=== PATIENT | male | born 1955 | race Caucasian/White ===

== ENCOUNTER 2020-05-24 15:54 | Observation (INO) | payer OTHER, SELFPAY ==
--- NOTE | 2020-05-24 16:00 | XR_ITS ---
WS: [id number] XR chest 1V portable [id number] REASON FOR EXAM: CVA FINDINGS: Cardiac enlargement. Normal thoracic aorta. Calcified granulomatous changes in both hemithoraces. No active pulmonary parenchymal or pleural disease. Mild/moderate degenerative changes in the thoracic spine and shoulders. XR/XR chest 1V portable [id number] IMPRESSION: Cardiac enlargement with no acute chest abnormality identified.
--- NOTE | 2020-05-24 16:00 | ECG_ITS ---
[facility] Test Date: 2020-05-24 Pat Name: Stan Smith Jr Department: Room: Gender: Male [employer]: : 1955 Requested By: Ashwin Salazar Order Number: [id number] Nikunj MD: Tennille Nance M.D. Measurements Intervals [place] Rate: 92 P: 65 [place]: 192 QRS: -72 QRSD: 106 T: 72 QT: 348 QTc: 431 Interpretive Statements SINUS RHYTHM LEFT ANTERIOR FASCICULAR BLOCK [QRS AXIS <= -45, QR IN I, RS IN II] POSSIBLE ANTERIOR MYOCARDIAL INFARCTION [30 ms Q WAVE IN V3/V4, OR R < 0.2 mV IN V4], OF INDETERMINATE AGE No previous ECG available for comparison Electronically Signed On 05-25-2020 19:38:05 MACHINIST GENERAL by Tennilel Nance M.D. [email or web address] [id number] f
--- NOTE | 2020-05-24 16:00 | CTR_ITS ---
PROCEDURE INFORMATION: Exam: CT Head Without Contrast Exam date and time: 05/24/2020 4:21 PM Age: 65 years old Clinical indication: Speech disturbance and weakness, extremity; Right; Slurred speech; Additional info: Symptoms of acute stroke TECHNIQUE: Imaging protocol: Computed tomography of the head without contrast. Radiation optimization: All CT scans at this facility use at least one of these dose optimization techniques: automated exposure control; mA and/or kV adjustment per patient size (includes targeted exams where dose is matched to clinical indication); or iterative reconstruction. COMPARISON: No relevant prior studies available. RADIATION DOSE METRICS: Total DLP (mGy-cm): 936.39 FINDINGS: Brain: Normal. No hemorrhage. Unremarkable white matter. No mass effect. Cerebral ventricles: No ventriculomegaly. Bones/joints: Unremarkable. No acute fracture. Paranasal sinuses: A cyst/polyp is present in the inferior left maxillary sinus. Mastoid air cells: Visualized mastoid air cells are well aerated. Orbital cavity: Bilateral prior cataract surgery. Vasculature: Atherosclerotic calcifications are present involving the carotid artery siphons and vertebral arteries bilaterally. Soft tissues: Unremarkable. CT/CT head wo con* [id number] IMPRESSION: No acute intracranial abnormality identified. Radiation Dose CTDIVOL = (mGy): DLP = 936.39 (mGy-cm)
[2020-05-24 16:14] VITALS: BP 185/77; PULSE 99; RESP 20; TEMP 36.7; O2SAT 97; BMI 52.7
--- NOTE | 2020-05-24 17:04 | ED_ITS ---
HPI - General Adult General: Chief complaint: General Medical Stated complaint: Slurred Speech, Numbness on Face Time Seen by Provider: 05/24/20 16:00 History of Present Illness: HPI narrative: 65-year-old male presents emergency room with complaints of slurring of his speech that began around noon today 4- 1/2 hours prior to arrival. Patient states he also noticed some weakness in his legs that was bilateral he has some peripheral edema and chronic neuropathy and weakness of his legs which is always present has not changed significantly. He thinks his speech has improved some but it is still slurred and is noticeable at the bedside. He denies any visual or swallowing difficulties no chest pain. Relieving factors: none Exacerbating factors: none Associated symptoms: Reports weakness; Deny chest pain, confusion, cough, diaphoresis, decreased appetite, dyspnea, fevers/chills, headache(s), malaise, nausea, rash, palpitations, seizures, short of breath, syncope or vomiting Treatments prior to arrival: none Review of Systems Const: Denies: malaise or diaphoresis Card: Denies: chest pain, palpitations or syncope Resp: Denies: dyspnea GI: Denies: nausea or vomiting Skin/Breast: Denies: rash Neuro: Denies: headache(s) or confusion PFSH ED PFSH: Medical History Congestive heart failure Diabetes mellitus Hyperlipidemia Hypertension Social History (Updated 05/24/20 @ 17:11 by Ashwin Dangelo DO) Smoking and tobacco status: never smoked Alcohol intake: never Physical Exam Const: COMMON NORMALS: no acute distress GENERAL APPEARANCE: cooperative and comfortable ORIENTATION/CONSCIOUSNESS: Yes awake, Yes oriented to person, Yes oriented to place and Yes oriented to time HENMT: COMMON NORMALS: normocephalic, atraumatic and hearing grossly normal bilaterally HEAD & SCALP: normocephalic and atraumatic Eye: COMMON NORMALS: Equal, round and reactive pupils present, EOMs intact bilaterally, conjunctivae normal and no scleral icterus CONJUNCTIVA: Yes conjunctivae normal PUPIL: Yes Equal, round and reactive pupils present Neck/C-Spine: COMMON NORMALS: full ROM, no lymphadenopathy, supple and no JVD Lymph: LYMPHATIC: no lymphadenopathy noted and no lymphedema noted Resp: COMMON NORMALS: normal respiratory effort, No retractions, No use of accessory muscles and clear to auscultation bilaterally AUSCULTATION: clear to auscultation bilaterally Cardio: COMMON NORMALS: no JVD, regular rate, regular rhythm and No murmurs present (Cardio) RATE: regular rate RHYTHM: regular rhythm GI: COMMON NORMALS: Soft to palpation and No hepatosplenomegaly present AUSCULTATION: Yes normoactive bowel sounds PALPATION: Yes Soft to palpation, No Tenderness to palpation present (GI), No Guarding due to palpation present (GI) and Yes No hepatosplenomegaly present Extremity: COMMON NORMALS: normal to inspection, capillary refill normal, no clubbing, cyanosis or edema, no calf tenderness and no pedal edema Neuro: SENSORIUM/ORIENTATION: Yes oriented to person, Yes oriented to place and Yes oriented to time Skin: COMMON NORMALS: no rashes or lesions noted GENERAL SKIN EXAM: no rashes or lesions noted Course Vital Signs: Vital signs: Vital Signs Temperature 98.1 F 05/24/20 16:14 Pulse Rate 99 05/24/20 16:14 Respiratory Rate 20 H 05/24/20 16:14 Blood Pressure 185/77 05/24/20 16:14 Pulse Oximetry 97 05/24/20 16:14 MDM - General Adult MDM Narrative: Medical decision making narrative: No acute bleed on the CT. His NIH score is not high enough to warrant embolectomy. He still has some difficulty with speech she has several risk factors we will go ahead and put him on observation for further evaluation as well as to evaluate if this will resolve or will progress. Currently he is outside the window for any kind of interventions at the time of his presentation he has waxing and waning symptoms and his NIH score is quite low. He had mentioned to the nurse he had numbness in his face when I test him for numbness there is equal sensation bilaterally. See his NIH score. Lab Data: Labs: Lab Results 05/24/20 05/24/20 05/24/20 Range/Units 16:52 16:52 16:52 WBC 10.1 H (4.0-10.0) 10^3/ uL RBC 4.99 (4.1-5.3) 10^6/u L Hgb 14.5 (11.7-16.6) g/dL Hct 43.3 (42.0-52.0) % MCV 86.8 (80-94) fL MCH 29.1 (28.0-34.0) pg MCHC 33.5 (30.0-36.0) g/dL RDW 13.2 (12.1-15.1) % Plt Count 269 (130-400) 10^3/c mm MPV 11.8 H (7.4-10.4) fL Neut % (Auto) 59.5 % Lymph % (Auto) 29.3 % [place] % (Auto) 6.6 % Eos % (Auto) 3.2 % Baso % (Auto) 0.8 % Neut # (Auto) 6.01 (1.8-7.7) 10^3/u L Lymph # (Auto) 3.0 (0.8-4.8) 10^3/u L [place] # (Auto) 0.7 (0.2-0.9) 10^3/u L Eos # (Auto) 0.3 (0.0-0.8) 10^3/u L Baso # (Auto) 0.1 (0.0-0.1) 10^3/u L Nucleated RBC % (a uto) 0 % Nucleated RBCs # 0.0 /100WBC PT 12.70 (12.1-14.9) SECO NDS INR 0.92 (0.8-1.2) APTT 25.2 (23.9-36.7) SECO NDS Sodium 134 L (136-145) mmol/L Potassium 4.1 (3.5-5.1) mmol/L Chloride 98 (98-107) mmol/L Carbon Dioxide 22 (22-29) mmol/L Anion Gap 18.1 (5-19) BUN 22 (8-23) mg/dL Creatinine 0.6 L (0.7-1.2) mg/dL GFR Calculation 134.8 H (90-130) mL/min Glucose 217 H (65-115) mg/dL Calculated Osmolal ity 288 (285-295) mOsm/k g Calcium 10.1 (8.5-10.5) mg/dL Total Bilirubin 0.2 (0.15-1.2) mg/dL AST 12 (0-40) U/L ALT 17 (0-41) U/L Alkaline Phosphata se 67 (40-130) IU/L Total Protein 6.9 (6.6-8.7) g/dL Albumin 4.1 (3.5-5.2) g/dL Globulin 2.8 (1.3-4.6) g/dL Discharge Plan Discharge Patient Disposition: Placed in Observation Clinical Impression: Acute CVA (cerebrovascular accident), Hypertension, Diabetes mellitus, Hyperlipidemia, Congestive heart failure Coding Level of Care Code ED Drop 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
[2020-05-24 17:06] LABS: Basophils # 0.1 10^3/uL (0.0-0.1); Basophils % 0.8 %; Eosinophils # 0.3 10^3/uL (0.0-0.8); Eosinophils % 3.2 %; Hematocrit 43.3 % (42.0-52.0); Hemoglobin 14.5 g/dL (11.7-16.6); Lymphocytes % 29.3 %; Mean Corpuscular HGB Conc 33.5 g/dL (30.0-36.0); Mean Corpuscular Hemoglobin 29.1 pg (28.0-34.0); Mean Corpuscular Volume 86.8 fL (80-94); Mean Platelet Volume 11.8 fL (7.4-10.4); Monocytes # 0.7 10^3/uL (0.2-0.9); Monocytes % 6.6 %; Neutrophils # 6.01 10^3/uL (1.8-7.7); Neutrophils % 59.5 %; Nucleated Red Blood Cells % 0 %; Platelet Count 269 10^3/cmm (130-400); Red Blood Count 4.99 10^6/uL (4.1-5.3); Red Cell Distribution Width 13.2 % (12.1-15.1); White Blood Count 10.1 10^3/uL (4.0-10.0)
[2020-05-24 17:16] LABS: INR 0.92 (0.8-1.2)
[2020-05-24 17:17] LABS: Partial Thromboplastin Time 25.2 SECONDS (23.9-36.7)
[2020-05-24 17:21] LABS: Alanine Aminotransferase 17 U/L (0-41); Albumin Level 4.1 g/dL (3.5-5.2); Alkaline Phosphatase 67 IU/L (40-130); Anion Gap 18.1 (5-19); Aspartate Amino Transferase 12 U/L (0-40); Blood Urea Nitrogen 22 mg/dL (8-23); Calcium 10.1 mg/dL (8.5-10.5); Carbon Dioxide 22 mmol/L (22-29); Chloride 98 mmol/L (98-107); Creatinine Clr Calc Pharmacy 150.4908; Globulin 2.8 g/dL (1.3-4.6); Glomerular Filtration Rate 134.8 mL/min (90-130); Glucose 217 mg/dL (65-115); Osmolality Calculated 288 mOsm/kg (285-295); Potassium 4.1 mmol/L (3.5-5.1); Sodium 134 mmol/L (136-145); Total Bilirubin 0.2 mg/dL (0.15-1.2); Total Protein 6.9 g/dL (6.6-8.7)
--- NOTE | 2020-05-24 19:17 | PM.HP ---
Providers/Chief Complaint Primary Care Provider: Divya Nye MD Chief Complaint: Slurred Speech, Numbness on Face History of Present Illness Stan Smith Jr is a 65 year old male who carries history of sleep apnea, type 2 diabetes, hypertension, morbid obesity presented today with chief complaint of slurred speech. Patient is stating that he noticed heaviness of his legs when he went to the bathroom around noon, at that time his son try to help him out and noticed that his speech was slurred, he did not come to the hospital until 3 PM. He did not notice any chest pain, palpitations, fever, nausea, vomiting, shortness of breath, diplopia, blurry vision. No previous history of [place], stroke. He is stating that he is also suffering from sciatica and foot drop and is not able to do any activity at ankle joints bilaterally. Diagnosis in the ER revealed hypertension 185/77, afebrile, normal CBC and BMP, CT head unremarkable, I have requested CTA head and neck, NIH score at the time of ER evaluation 2, is at the bedside. NIH score 4 slurred speech, right sided facial droop, ataxia, Review of Systems Const: Reports: fatigue and malaise; Denies: fever(s) or chills Eyes: Denies: change in vision ENMT: Denies: throat pain Card: Reports: swelling of feet/ankles; Denies: chest pain Resp: Denies: dyspnea GI: Denies: abdominal pain : Denies: flank pain Musc: Denies: neck pain Skin/Breast: Reports: changes in skin color; Denies: rash Neuro: Reports: weakness in extremities and difficulty walking; Denies: headache(s) Psych: Denies: anxiety Endo: Denies: polyuria Marquez/Lymph: Denies: easy bruising All/Imm: Denies: urticaria Medications/Allergies Home Medications Medication Instructions Recorded Confirmed Last Taken Type allopurinol 300 mg PO DAILY@0800 05/24/20 05/24/20 05/24/20 History amlodipine 5 mg PO DAILY@0800 05/24/20 05/24/20 05/24/20 History aspirin [Aspir-81] 81 mg PO DAILY@0800 05/24/20 05/24/20 05/24/20 History cholecalciferol (vitamin D3) 1 tab PO DAILY@0800 05/24/20 05/24/20 05/24/20 History furosemide 40 mg PO BID@,05/24/20 05/24/20 05/24/20 History gabapentin 300 mg PO BID@,05/24/20 05/24/20 05/24/20 History glipizide See Rx Instructions .ROUTE .COMPLEX 05/24/20 05/24/20 05/24/20 History insulin aspart U-100 [Novolog See Rx Instructions .ROUTE .COMPLEX 05/24/20 05/24/20 05/24/20 History U-100 Insulin aspart] insulin glargine [Lantus U-100 See Rx Instructions .ROUTE .COMPLEX 05/24/20 05/24/20 05/23/20 History Insulin] lisinopril 20 mg PO DAILY@0800 05/24/20 05/24/20 05/24/20 History metformin 1,000 mg PO BID@,05/24/20 05/24/20 05/24/20 History pravastatin 20 mg PO DAILY@0800 05/24/20 05/24/20 05/24/20 History spironolactone 25 mg PO DAILY@0800 05/24/20 05/24/20 05/24/20 History Allergies Allergy/AdvReac Type Severity Reaction Status Date / Time Tetanus Vaccines and Toxoid Allergy ALGY-Anaphy Verified 05/24/20 16:19 laxis PFSH Acute PFSH: Medical History (Updated 05/24/20 @ 19:20 by Kait Casey MD) Congestive heart failure Diabetes mellitus Hyperlipidemia Hypertension Lymphedema Prostate cancer Status post radiotherapy Sleep apnea Surgical History (Updated 05/24/20 @ 19:20 by Kait Casey MD) H/O hemorrhoidectomy History of tonsillectomy Family History (Updated 05/24/20 @ 19:20 by Kait Casey MD) Father Family history of premature coronary artery disease [place] age 46 Social History (Updated 05/24/20 @ 19:20 by Kait Casey MD) Smoking and tobacco status: never smoked Alcohol intake: never Substance/Drug Use: never Household members: spouse Housing: House Vitals/I&O/Wt Last Vital Signs Temp 98.1 F 05/24/20 16:14 Pulse 99 05/24/20 16:14 Resp 20 H 05/24/20 16:14 BP 185/77 05/24/20 16:14 Pulse Ox 97 05/24/20 16:14 Weight last 48 hrs Weight 176.447 kg Physical Exam Narrative: EXAM NARRATIVE: middle-age male sitting at the bedside when I enter the room Saturating well on room air is at the bedside Patient has right-sided facial droop, as per the his slurring of speech has slightly improved No no gaze preference, NIH 4 EOMI, PERRLA No headache No cerebellar signs Lower extremity strength knee flexion 3/5 hip flexion and extension 2/5 which is attributing to sciatica, no movement at all at ankle joint, upper extremity director statistical programming strength adequate and symmetrical S1, S2 is hard to assess his volume status Lower extremity nonpitting edema he is wearing compression stockings Abdomen soft distended with obesity, nontender Bilateral breath sounds without adventitious rhonchi or crackles Data : 05/24/20 16:52 05/24/20 16:52 A&P Assessment and plan (1) Acute CVA (cerebrovascular accident): Symptoms started at noon and patient presented to the hospital around 3 PM, deemed not a suitable candidate for TPA because of low NIH score, at the time of my evaluation at 8 PM NIH score is 4 As per the dysarthria has slightly improved, visible facial asymmetry, patient is stating that his bilateral lower extremity ataxia is chronic due to lymphedema, foot drop and sciatica CT head unremarkable for acute hemorrhage I have requested CTA head and neck Lipid profile, allow permissive hypertension, optimal control of hyperglycemia Dysphagia screen in the morning Neurochecks overnight Start aspirin and Plavix dual antiplatelet therapy for at least 21 days, high dose statins Physical therapy evaluation Status: Acute Additional A&P Information Obstructive sleep apnea: Continue auto CPAP overnight Type 2 diabetes: Would use low-dose sliding scale because we need dysphagia screen before starting him on diet Hypertension: Systolic blood pressure 180s allow permissive hypertension, hold amlodipine, hold spironolactone decrease lisinopril dose to 10 mg Full code N.p.o. DVT prophylaxis Lovenox Attestations Medical Necessity Statement*: I am anticipating patient will be discharged in less than 48 hours currently need work-up for acute stroke, NIH score 4 need CTA head and neck, will need speech evaluation and physical therapy in the morning Time Spent in Patient Care: (>than 50% of time spent in counselling and/or direct pt care on unit). 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
--- NOTE | 2020-05-24 19:21 | CTR_ITS ---
PROCEDURE INFORMATION: Exam: CT Angiography Head With Contrast Exam date and time: 05/24/2020 7:25 PM Age: 65 years old Clinical indication: Speech disturbance and weakness; Additional info: TIA TECHNIQUE: Imaging protocol: Computed tomography angiography of the head with intravenous contrast. 3D rendering (Not supervised by radiologist): MIP and/or 3D reconstructed images were created by the technologist. Radiation optimization: All CT scans at this facility use at least one of these dose optimization techniques: automated exposure control; mA and/or kV adjustment per patient size (includes targeted exams where dose is matched to clinical indication); or iterative reconstruction. Contrast material: OMNI 350; Contrast volume: 95 ml; Contrast route: INTRAVENOUS (IV); COMPARISON: CT head wo con* [id number] 05/24/2020 4:[address] cervical spine from 04/18/2017. RADIATION DOSE METRICS: Total DLP (mGy-cm): 3498.15 FINDINGS: ANTERIOR CIRCULATION: Right internal carotid artery: Insignificant calcified plaque in the very distal right internal carotid artery. Right middle cerebral artery: Unremarkable. No occlusion or significant stenosis. No aneurysm. Right anterior cerebral artery: The right A1 segment is absent but the left A1 segment is widely patent. There is crossover perfusion via the anterior communicating artery. Left internal carotid artery: Insignificant calcified plaque in the very distal left internal carotid artery. Left middle cerebral artery: Unremarkable. No occlusion or significant stenosis. No aneurysm. Left anterior cerebral artery: Unremarkable. No occlusion or significant stenosis. No aneurysm. POSTERIOR CIRCULATION: Right vertebral artery: Unremarkable. No occlusion or significant stenosis. No aneurysm. Left vertebral artery: Unremarkable. No occlusion or significant stenosis. No aneurysm. Basilar artery: There is a focal moderate stenosis in the proximal basilar artery estimated at 50-60% Right posterior cerebral artery: Unremarkable. No occlusion or significant stenosis. No aneurysm. Left posterior cerebral artery: Unremarkable. No occlusion or significant stenosis. No aneurysm. Left posterior communicating artery: Neither posterior communicating artery is seen which is usually incidental. Veins: The major intracranial venous sinuses enhance normally. Brain: Small right frontal vertex extra-axial soft tissue mass measures 9 x 8 x 8 mm and is most likely meningioma. No significant mass effect. Cerebral ventricles: No ventriculomegaly. Bones/joints: Unremarkable. No acute fracture. Soft tissues: Unremarkable. IMPRESSION: 1. 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 2. Small right frontal extra-axial mass is most likely a meningioma. No significant mass effect PROCEDURE INFORMATION: Exam: CT Angiography Neck With Contrast Exam date and time: 05/24/2020 7:25 PM Age: 65 years old Clinical indication: Speech disturbance and weakness; Additional info: TIA TECHNIQUE: Imaging protocol: Computed tomography angiography of the neck with intravenous contrast. 3D rendering (Not supervised by radiologist): MIP and/or 3D reconstructed images were created by the technologist. Radiation optimization: All CT scans at this facility use at least one of these dose optimization techniques: automated exposure control; mA and/or kV adjustment per patient size (includes targeted exams where dose is matched to clinical indication); or iterative reconstruction. Contrast material: OMNI 350; Contrast volume: 95 ml; Contrast route: INTRAVENOUS (IV); COMPARISON: CT head wo con* [id number] 05/24/2020 4:26 PM RADIATION DOSE METRICS: Total DLP (mGy-cm): 3498.15 FINDINGS: Right common carotid artery: No stenosis. No dissection or occlusion. Right internal carotid artery: Portions of the proximal right internal carotid artery are not well seen due to swallowing artifact. The vessel is otherwise patent. Right external carotid artery: No occlusion or stenosis of the origin. Right vertebral artery: The vertebral arteries are symmetric in size and are widely patent. Left common carotid artery: No stenosis. No dissection or occlusion. Left internal carotid artery: Calcified plaque in the proximal left internal carotid artery produces mild, less than 30% stenosis based on an NASCET minimum diameter criteria. Portions of this vessel are suboptimally evaluated due to swelling artifact. Left external carotid artery: No occlusion or stenosis of the origin. Left vertebral artery: No stenosis. No dissection or occlusion. Other vasculature: Calcified plaques are noted in the left anterior descending coronary artery. Thyroid: A predominantly solid 3.7 cm left thyroid nodule is unchanged since 2017. Bones/joints: The mild cervical degenerative changes in the upper cervical spine. No significant stenosis. Soft tissues: Normal. No significant soft tissue swelling. Lungs: The visualized lung apices are clear. CT/CT angio headneck* [id number] IMPRESSION: 1. No significant carotid or vertebral artery stenosis. 2. Chronic solid left thyroid nodule is stable since at least 2016 COMMENTS: Consistent with the [employer]'s Incidental Findings Committee white paper (J Am Shannon Radiol 2015): In patients aged 35 years and older with an incidental thyroid nodule equal to or greater than 1.[address], MRI or extrathyroidal US, further evaluation with dedicated thyroid US is recommended for patients with normal life expectancy and without comorbidities. For smaller nodules without suspicious features, no further evaluation or follow up is recommended. REFERENCES: NASCET CRITERIA. The degree of internal carotid artery stenosis is based on NASCET criteria. Normal is no stenosis. Mild is less than 50% stenosis. Moderate is 50-69% stenosis. Severe is 70% to 99% stenosis. Total occlusion is no detectable patent lumen. Radiation Dose CTDIVOL = (mGy): DLP = 3498.15~3498.15 (mGy-cm)
[2020-05-24 19:30] LABS: Add Urine Microscopic? YES; Bilirubin Urine Neg (Negative); Blood Urine Neg (Negative); Glucose Urine UA Norm (Normal); Ketones Urine Negative (Negative); Leukocyte Esterase Urine Negative (Negative); Nitrate Urine Positive (Negative); Protein Urine 3+ (Negative); Specific Gravity, Urine 1.015 (1.005-1.030); Urine Appearance Hazy (CLEAR); Urine Color Straw (Yellow); Urobilinogen Urine Norm (Negative); pH Urine 5 (5-7)
[2020-05-24 19:31] LABS: Add Urine Culture? Yes; Amphetamines Screen Urine Negative (Negative); Bacteria Urine 3+ /hpf; Barbiturates Screen Urine Negative (Negative); Benzodiazepines Screen Urine Negative (Negative); Cocaine Screen Urine Negative (Negative); Opiate Screen Urine Negative (Negative); PCP Screen Urine Negative (Negative); THC Screen Urine Negative (Negative); WBC Urine 15-25 /hpf (0-5)
[2020-05-24] MEDS: iohexol 350 mg/mL 100 mL Btl IV (19:48)
[2020-05-24 20:02] VITALS: BP 176/91; PULSE 96; RESP 18; O2SAT 97
[2020-05-24 20:11] VITALS: BP 178/97; PULSE 92; RESP 16; O2SAT 97
[2020-05-24 20:15] VITALS: BP 146/74; PULSE 80; RESP 20; TEMP 36.8; O2SAT 93
[2020-05-24 21:05] LABS: Glucose Point of Care 171 mg/dL (70-110)
[2020-05-24 21:11] LABS: Chol HDL Ratio 5.84 mg/dL (1.0-5.00); Cholesterol 187 mg/dL (0-200); HDL Cholesterol 32 mg/dL (60-100); LDL Cholesterol Calculated 79 mg/dL (50-129); LDL HDL Ratio 2.47 RATIO (0.00-3.22); Thyroid Stimulating Hormone 2.63 uIU/mL (0.27-4.20); Triglycerides 382 mg/dL (0-150)
[2020-05-24] MEDS: enoxaparin 40 mg/0.4 mL Syringe SUBCUT (21:43)
[2020-05-24] MEDS: atorvastatin 40 mg Tablet 80 MG PO (21:43)
[2020-05-24] MEDS: FUROsemide 40 mg Tablet PO (21:43)
[2020-05-24 22:00] VITALS: PULSE 95
[2020-05-24 22:19] LABS: Estmated Average Glucose 200; Hemoglobin A1C 8.6 % (4.0-6.0)
[2020-05-24 23:45] VITALS: BP 138/77; PULSE 96; RESP 18; TEMP 36.4; O2SAT 96
[2020-05-25] VITALS (8 sets, daily range): BP systolic 130–158; BP diastolic 51–87; PULSE 65–104; RESP 16–20; TEMP 36.4–36.9; O2SAT 93–95
[2020-05-25 05:01] LABS: Basophils # 0.1 10^3/uL (0.0-0.1); Basophils % 1.1 %; Eosinophils # 0.3 10^3/uL (0.0-0.8); Eosinophils % 3.4 %; Hemoglobin 13.6 g/dL (11.7-16.6); Lymphocytes # 2.5 10^3/uL (0.8-4.8); Lymphocytes % 28.6 %; Mean Corpuscular HGB Conc 33.2 g/dL (30.0-36.0); Mean Corpuscular Hemoglobin 29.1 pg (28.0-34.0); Mean Corpuscular Volume 87.8 fL (80-94); Mean Platelet Volume 12.4 fL (7.4-10.4); Monocytes # 0.8 10^3/uL (0.2-0.9); Monocytes % 8.9 %; Neutrophils % 57.5 %; Nucleated Red Blood Cells % 0 %; Platelet Count 229 10^3/cmm (130-400); Red Blood Count 4.67 10^6/uL (4.1-5.3); Red Cell Distribution Width 13.3 % (12.1-15.1); White Blood Count 8.7 10^3/uL (4.0-10.0)
[2020-05-25 05:22] LABS: Alanine Aminotransferase 14 U/L (0-41); Albumin Level 3.8 g/dL (3.5-5.2); Alkaline Phosphatase 59 IU/L (40-130); Anion Gap 15.7 (5-19); Aspartate Amino Transferase 14 U/L (0-40); Blood Urea Nitrogen 20 mg/dL (8-23); Calcium 9.9 mg/dL (8.5-10.5); Carbon Dioxide 25 mmol/L (22-29); Chloride 99 mmol/L (98-107); Globulin 2.6 g/dL (1.3-4.6); Glomerular Filtration Rate 134.8 mL/min (90-130); Glucose 208 mg/dL (65-115); Osmolality Calculated 291 mOsm/kg (285-295); Potassium 3.7 mmol/L (3.5-5.1); Sodium 136 mmol/L (136-145); Total Bilirubin 0.3 mg/dL (0.15-1.2); Total Protein 6.4 g/dL (6.6-8.7)
[2020-05-25 05:27] LABS: Creatinine Clr Calc Pharmacy 150.4908
[2020-05-25 06:31] LABS: Glucose Point of Care 247 mg/dL (70-110)
[2020-05-25] MEDS: FUROsemide 40 mg Tablet PO (08:42)
[2020-05-25] MEDS: lisinopril 10 mg Tablet PO (08:42)
[2020-05-25] MEDS: aspirin 81 mg EC Tablet PO (08:42)
[2020-05-25] MEDS: atorvastatin 40 mg Tablet 20 MG PO (08:42)
[2020-05-25] MEDS: amlodipine 5 mg Tablet PO (08:43)
[2020-05-25] MEDS: clopidogrel 75 mg Tablet PO (08:43)
--- NOTE | 2020-05-25 10:16 | USCV_ITS ---
Stan Smith Jr Age: 65 Gender: M : 1955 Exam Date: 05/25/2020 13:22 Ordering Phys: Timothy Bales MD Technologist: Italo Diaz Exam Location: [facility] [place] Indication: CVA BP: 145 / 67 HR: 85 Rhythm: Sinus Technical Quality: Technically difficult study MEASUREMENTS (Male / Female) Normal Values 2D ECHO LV Diastolic Diameter PLAX 4.7 cm 4.2 - 5.9 / 3.9 - 5.3 cm LV Systolic Diameter PLAX 3.1 cm IVS Diastolic Thickness 1.6 cm 0.6 - 1.0 / 0.6 - 0.9 cm IVS Systolic Thickness 1.6 cm LVPW Diastolic Thickness 1.3 cm 0.6 - 1.0 / 0.6 - 0.9 cm LVPW Systolic Thickness 1.5 cm LVOT Diameter 2.1 cm LV Ejection Fraction 2D Teich 63.6 % LA Diameter 4.2 cm M-MODE LV Diastolic Diameter MM 5.5 cm 4.2 - 5.9 / 3.9 - 5.3 cm LV Systolic Diameter MM 3.8 cm LV Ejection Fraction MM Teich 58.0 % IVS Diastolic Thickness MM 1.1 cm 0.6 - 1.0 / 0.6 - 0.9 cm IVS Systolic Thickness MM 1.8 cm LVPW Diastolic Thickness MM 1.2 cm 0.6 - 1.0 / 0.6 - 0.9 cm LVPW Systolic Thickness MM 2.0 cm RV Diastolic Diameter MM 1.8 cm Aortic Annulus Diameter 3.0 cm LA Ao Ratio MM 1.3 MV E Point Septal Separation 1.1 cm DOPPLER AV Peak Velocity 95.0 cm/s LVOT Peak Velocity 100.0 cm/s AV Area Cont Eq vti 3.3 cm squared AV Area Cont Eq pk 3.5 cm squared MV Area PHT 5.0 cm squared Mitral E to A Ratio 0.8 MV E' Velocity 70.0 cm/s TR Peak Velocity 140.0 cm/s TR Peak Gradient 7.8 mmHg TV Peak E Velocity 77.0 cm/s Right Atrial Pressure 3.0 mmHg Pulmonary Artery Systolic Pressu 10.8 mmHg FINDINGS Left Ventricle Possibly normal LV size ejection fraction of 60%. Segmental wall motion analysis difficult. Extremely poor ultrasonic window. Right Ventricle Could not be visualized well Right Atrium Could not be visualized well Left Atrium Mildly increased left atrial size. Mitral Valve Thickened mitral valve. Aortic Valve Morphology could not be delineated well Tricuspid Valve Valve is not visualized well Pulmonic Valve Pulmonic valve not well visualized. Pericardium No pericardial effusion. Aorta Normal aortic annulus size. CONCLUSIONS Possibly normal LV size ejection fraction of 60%. Segmental wall motion analysis difficult. Thickened mitral valve. Other valves could not be visualized well Mildly increased left atrial size. There is no pericardial effusion. Extremely poor ultrasonic window. No previous study is available for comparison. Dr Dano Suazo MD FACC (Electronically Signed) Final Date: 25 May 2020 16:08 S
[2020-05-25] MEDS: cefTRIAXone 1,000 MG in sodium chloride 0.9% (plus) 50 ML 100 MG IV (11:01)
[2020-05-25 11:41] LABS: Glucose Point of Care 281 mg/dL (70-110)
--- NOTE | 2020-05-25 16:33 | PM.DCS ---
Discharge Providers Date of Admission: 05/24/20 19:18 Date of Discharge: May 25, 2020 Attending Provider at Admission: Kait Casey MD Attending Provider at Discharge: iTmothy Bales Primary Care Provider: Divya Nye MD Diagnoses at Discharge Discharge Diagnosis (1) Acute CVA (cerebrovascular accident): Status: Acute (2) UTI (urinary tract infection): Status: Acute (3) Diabetes mellitus: Status: Acute (4) Hyperlipidemia: Status: Acute (5) Hypertension: Status: Acute Reason for Visit Reason for Visit: Slurred Speech, Numbness on Face Hospital Course Hospital Course Pleasant 65-year-old gentleman with history of CHF, DM 2, HLD, HTN, chronic lymphedema, history of prostate cancer status post radiotherapy, sleep apnea using CPAP was admitted after presenting with slurred speech, with noted right-sided facial droop on presentation, dysarthria, ataxia. He was outside the window for TPA. CT head showed no acute abnormality. He was continued on aspirin, started on Plavix. Initiated on high intensity statin. His antihypertensives were held for permissive hypertension. A1c was checked and was 8.6. CTA head and neck was obtained which showed moderate chronic basilar artery stenosis at 50-60%. Also incidentally noted small right frontal extra-axial mass most likely meningioma of 9 x 8 x 8 mm. Also noted chronic solid left thyroid nodule stable since at least 2017 at 3.7 cm. He was monitored on telemetry without any finding of atrial fibrillation. Also underwent chest x-ray with cardiac enlargement with no acute chest abnormality. He is a never smoker. He states that he is religiously compliant with his CPAP at home for sleep apnea. He has been having difficulties with ambulation, and noted requiring significant assistance by physical therapy to try to get up from chair. He did better with speech therapy, and regular consistency diet was recommended. On presentation he was also noted to have 15-25 WBCs, positive nitrite in urine with 3+ bacteria, suspicion for UTI for which he was started on Rocephin while in the hospital. He had no meningeal signs, and no signs of infection elsewhere. His TSH was normal at 2.63. Urine drug screen unremarkable. Total cholesterol 187, triglycerides 382, LDL 79, HDL 32. He underwent additional assessment by echocardiography. MRI could not be obtained as he was above the weight limitation of the machine. His facial droop was persistent, however, slurred speech did improve little bit. Concern was expressed regarding safe return home given significant assistance required to get up from chair or from bed. However, he was firm that he was going to return home today and that his house was much better equipped including a chair lift and he has been used to dealing with chronic lower extremity weakness and mobility difficulties. He reports his heaviness in his legs, chronic sciatica, foot drop are not new, and without worsening. His condition, all incidental findings, as well as concerns regarding his mobility expressed by physical therapy discussed with him and his . Additional monitoring and work-up in the hospital recommended. We also discussed risks of CVA with basilar artery narrowing, concern for need for additional monitoring of blood pressure, risk of hypoperfusion, risk of possible posterior CVA, with possible risk of cerebellar edema, brainstem herniation, severe disability as well as including coma, respiratory arrest and as possible complications. However, he he states he understands the risks but still prefers to discharge home despite some of the testing results including echocardiogram being incomplete. He deos agree to initiation of high intensity statin, temporary addition of Plavix to aspirin, and with seeking outpatient follow-up. Discussed with him to at least avoid initiation of oral antihypertensives agents at the same time to avoid rapid decrease in blood pressure, hypoperfusion, and that may lead to progression of stroke and discussed gradual initiation of blood pressure medications (as below), again encouraging him to stay with us or return to continue care, and definitely seek emergent medical attention in case of any worsening or concerns. Discussed that long-term we want to achieve better blood pressure control, with target of less than 130/80, recommend with acute CVA and bilateral stenosis rapid decrease in blood pressure need to be avoided. Discussed frequent monitoring of blood pressure. He would also benefit from optimization of diabetes control. He is initiated on Plavix for now for 21 days in addition to aspirin. His statin dose is increased to high intensity atorvastatin. He is [facility] for additional assessment and recommendations to prevent recurrent CVA including in the setting of basilar artery stenosis, and follow-up on meningioma. He understands also that his urine culture is incomplete, and with history of UTI he may be at risk of resistant bacteria. In case culture shows resistant organisms antibiotic prescribed to him may not be effective. He understands also to follow-up with his primary provider regarding optimization of other risk factors for CVA. Assistance with weight loss options. As well as to follow-up on the thyroid nodule. Physical Exam Const: COMMON NORMALS: no acute distress and patient oriented x3 GENERAL APPEARANCE: comfortable NUTRITIONAL APPEARANCE: obese morbidly obese OTHER: Pleasant, conversant. HENMT: COMMON NORMALS: oropharynx normal Neck/C-Spine: COMMON NORMALS: no meningeal signs and no JVD Resp: COMMON NORMALS: normal respiratory effort and clear to auscultation bilaterally AUSCULTATION: clear to auscultation bilaterally Cardio: COMMON NORMALS: no JVD, regular rhythm, S1 normal heart sound present, S2 normal heart sound present and No murmurs present (Cardio) RHYTHM: regular rhythm HEART SOUNDS: S1 normal heart sound present and S2 normal heart sound present GI: COMMON NORMALS: Normal to inspection, nondistended, normoactive bowel sounds present, Soft to palpation and non-tender PALPATION: Yes Soft to palpation Extremity: COMMON NORMALS: no joint enlargement NARRATIVE EXTREMITY EXAM: Non-pitting edema. Compression stockings in place. Neuro: COMMON NORMALS: patient oriented x3 and moves all extremities MENINGEAL SIGNS: Yes no meningeal signs COORDINATION/BALANCE: No [id number] test normal (mild dysmetria in R arm on FNF) SPEECH: abnormal speech (mild dysarthria) SENSORY EXAM: Yes extremities (normal) and Normal double simultaneous stimulation for sensation MOTOR EXAM: Pronator motor function not present, Normal motor muscle tone present throughout (power symmetrical) and Other motor observations present (R side facial droop) COORDINATION: [id number] test abnormal (mild dysmetria in R arm on FNF) OTHER: Visual rivas full to confrontation Skin: COMMON NORMALS: no rashes or lesions noted GENERAL SKIN EXAM: no rashes or lesions noted Discharge Data Data Completed and Pending: Completed Studies During Hospitalization Category Date Time Status CT angio headneck * [id number] Stat Cat Scan 05/24/20 19:[address] head wo con* [id number] Stat Cat Scan 05/24/20 16:00 Completed XR chest 1V greg ble [id number] Stat Exams 05/24/20 16:00 Completed CV echo complete* [id number] Routine Ultrasound 05/25/20 10:16 Completed Pending at discharge Category Date Time Status Urine Culture Sta t Lab 05/24/20 19:10 Received Labs from last 24 hours 05/25/20 05/25/20 05/25/20 11:06 06:21 04:09 WBC RBC Hgb Hct MCV MCH MCHC RDW Plt Count MPV Neut % (Auto) Lymph % (Auto) [place] % (Auto) Eos % (Auto) Baso % (Auto) Neut # (Auto) Lymph # (Auto) [place] # (Auto) Eos # (Auto) Baso # (Auto) Nucleated RBC % (a uto) Nucleated RBCs # PT INR APTT Sodium 136 Potassium 3.7 Chloride 99 Carbon Dioxide 25 Anion Gap 15.7 BUN 20 Creatinine 0.6 L GFR Calculation 134.8 H Glucose 208 H POC Glucose 281 247 Estimat Average Gl ucose Hemoglobin A1c Calculated Osmolal ity 291 Calcium 9.9 Total Bilirubin 0.3 AST 14 ALT 14 Alkaline Phosphata se 59 Total Protein 6.4 L Albumin 3.8 Globulin 2.6 Triglycerides Cholesterol LDL Cholesterol, C alc HDL Cholesterol LDL/HDL Ratio Cholesterol/HDL Ra meaghan TSH Urine Color Urine Appearance Urine pH Ur Specific Gravit y Urine Protein Urine Glucose (UA) Urine Ketones Urine Blood Urine Nitrate Urine Bilirubin Urine Urobilinogen Ur Leukocyte Nakita ase Urine RBC Urine WBC Ur Squamous Epith Cells Amorphous Sediment Urine Bacteria Urine Opiates Scre en Ur Barbiturates Sc reen Ur Phencyclidine S crn Ur Amphetamines Sc reen U Benzodiazepines Scrn Urine Cocaine Scre en U Marijuana (THC) Screen 05/25/20 05/24/20 05/24/20 04:09 21:02 19:10 WBC 8.7 RBC 4.67 Hgb 13.6 Hct 41.0 L MCV 87.8 MCH 29.1 MCHC 33.2 RDW 13.3 Plt Count 229 MPV 12.4 H Neut % (Auto) 57.5 Lymph % (Auto) 28.6 [place] % (Auto) 8.9 Eos % (Auto) 3.4 Baso % (Auto) 1.1 Neut # (Auto) 5.00 Lymph # (Auto) 2.5 [place] # (Auto) 0.8 Eos # (Auto) 0.3 Baso # (Auto) 0.1 Nucleated RBC % (a uto) 0 Nucleated RBCs # 0.0 PT INR APTT Sodium Potassium Chloride Carbon Dioxide Anion Gap BUN Creatinine GFR Calculation Glucose POC Glucose 171 Estimat Average Gl ucose Hemoglobin A1c Calculated Osmolal ity Calcium Total Bilirubin AST ALT Alkaline Phosphata se Total Protein Albumin Globulin Triglycerides Cholesterol LDL Cholesterol, C alc HDL Cholesterol LDL/HDL Ratio Cholesterol/HDL Ra meaghan TSH Urine Color Urine Appearance Urine pH Ur Specific Gravit y Urine Protein Urine Glucose (UA) Urine Ketones Urine Blood Urine Nitrate Urine Bilirubin Urine Urobilinogen Ur Leukocyte Nakita ase Urine RBC Urine WBC Ur Squamous Epith Cells Amorphous Sediment Urine Bacteria Urine Opiates Scre en Negative Ur Barbiturates Sc reen Negative Ur Phencyclidine S crn Negative Ur Amphetamines Sc reen Negative U Benzodiazepines Scrn Negative Urine Cocaine Scre en Negative U Marijuana (THC) Screen Negative 05/24/20 05/24/20 05/24/20 19:10 16:52 16:52 WBC RBC Hgb Hct MCV MCH MCHC RDW Plt Count MPV Neut % (Auto) Lymph % (Auto) [place] % (Auto) Eos % (Auto) Baso % (Auto) Neut # (Auto) Lymph # (Auto) [place] # (Auto) Eos # (Auto) Baso # (Auto) Nucleated RBC % (a uto) Nucleated RBCs # PT INR APTT Sodium Potassium Chloride Carbon Dioxide Anion Gap BUN Creatinine GFR Calculation Glucose POC Glucose Estimat Average Gl ucose 200 Hemoglobin A1c 8.6 H Calculated Osmolal ity Calcium Total Bilirubin AST ALT Alkaline Phosphata se Total Protein Albumin Globulin Triglycerides 382 H Cholesterol 187 LDL Cholesterol, C alc 79 HDL Cholesterol 32 L LDL/HDL Ratio 2.47 Cholesterol/HDL Ra meaghan 5.84 H TSH 2.63 Urine Color Straw Urine Appearance Hazy A Urine pH 5 Ur Specific Gravit y 1.015 Urine Protein 3+ H Urine Glucose (UA) Norm Urine Ketones Negative Urine Blood Neg Urine Nitrate Positive H Urine Bilirubin Neg Urine Urobilinogen Norm Ur Leukocyte Nakita ase Negative Urine RBC None Urine WBC 15-25 H Ur Squamous Epith Cells None Amorphous Sediment Not Reportable Urine Bacteria 3+ H Urine Opiates Scre en Ur Barbiturates Sc reen Ur Phencyclidine S crn Ur Amphetamines Sc reen U Benzodiazepines Scrn Urine Cocaine Scre en U Marijuana (THC) Screen 05/24/20 05/24/20 05/24/20 16:52 16:52 16:52 WBC 10.1 H RBC 4.99 Hgb 14.5 Hct 43.3 MCV 86.8 MCH 29.1 MCHC 33.5 RDW 13.2 Plt Count 269 MPV 11.8 H Neut % (Auto) 59.5 Lymph % (Auto) 29.3 [place] % (Auto) 6.6 Eos % (Auto) 3.2 Baso % (Auto) 0.8 Neut # (Auto) 6.01 Lymph # (Auto) 3.0 [place] # (Auto) 0.7 Eos # (Auto) 0.3 Baso # (Auto) 0.1 Nucleated RBC % (a uto) 0 Nucleated RBCs # 0.0 PT 12.70 INR 0.92 APTT 25.2 Sodium 134 L Potassium 4.1 Chloride 98 Carbon Dioxide 22 Anion Gap 18.1 BUN 22 Creatinine 0.6 L GFR Calculation 134.8 H Glucose 217 H POC Glucose Estimat Average Gl ucose Hemoglobin A1c Calculated Osmolal ity 288 Calcium 10.1 Total Bilirubin 0.2 AST 12 ALT 17 Alkaline Phosphata se 67 Total Protein 6.9 Albumin 4.1 Globulin 2.8 Triglycerides Cholesterol LDL Cholesterol, C alc HDL Cholesterol LDL/HDL Ratio Cholesterol/HDL Ra meaghan TSH Urine Color Urine Appearance Urine pH Ur Specific Gravit y Urine Protein Urine Glucose (UA) Urine Ketones Urine Blood Urine Nitrate Urine Bilirubin Urine Urobilinogen Ur Leukocyte Nakita ase Urine RBC Urine WBC Ur Squamous Epith Cells Amorphous Sediment Urine Bacteria Urine Opiates Scre en Ur Barbiturates Sc reen Ur Phencyclidine S crn Ur Amphetamines Sc reen U Benzodiazepines Scrn Urine Cocaine Scre en U Marijuana (THC) Screen Vitals: Last Vital Signs Temp 98.4 F 05/25/20 15:43 Pulse 65 05/25/20 15:43 Resp 16 05/25/20 15:43 BP 150/51 05/25/20 15:43 Pulse Ox 95 05/25/20 15:43 Discharge Plan Discharge Patient Disposition: Left Against Medical Advice Condition: Stable Prescriptions: New atorvastatin 40 mg Tablet 80 mg PO BEDTIME Qty: 60 RF: 0 clopidogrel 75 mg Tablet 75 mg PO DAILY Qty: 20 RF: 0 cefdinir 300 mg capsule 300 mg PO BID 5 Days Qty: 10 RF: 0 Continued Lantus U-100 Insulin 100 unit/mL Solution See Rx Instructions .ROUTE .COMPLEX RF: 0 amlodipine 5 mg Tablet 5 mg PO DAILY@0800 RF: 0 Aspir-81 81 mg Tablet,Delayed Release (Dr/Ec) 81 mg PO DAILY@0800 RF: 0 Novolog U-100 Insulin aspart 100 unit/mL Solution See Rx Instructions .ROUTE .COMPLEX RF: 0 metformin 1,000 mg Tablet 1,000 mg PO BID@ RF: 0 gabapentin 300 mg Tablet Extended Release 24 Hr 300 mg PO BID@ RF: 0 cholecalciferol (vitamin D3) 1 tab PO DAILY@0800 RF: 0 glipizide See Rx Instructions .ROUTE .COMPLEX RF: 0 Held furosemide 40 mg Tablet 40 mg PO BID@ RF: 0 Hold Instructions: Resume on 05/27/20. lisinopril 20 mg Tablet 20 mg PO DAILY@0800 RF: 0 Hold Instructions: Resume on 05/26/20. spironolactone 25 mg Tablet 25 mg PO DAILY@0800 RF: 0 Hold Instructions: Resume on 05/27/20. allopurinol 300 mg Tablet 300 mg PO DAILY@0800 RF: 0 Hold Instructions: Resume on 05/28/20. Discontinued pravastatin 20 mg Tablet 20 mg PO DAILY@0800 RF: 0 Discharge Orders: Discharge Order (Routine); Ordered 05/25/20 Ordered By: Timothy Bales Referrals: Divya Nye MD [Primary Care Provider] - 4-7 days (DOCTOR WILL CALL WITH APPOINTMENT) Discharge Diet: As Directed, Cardiac and Diabetic Discharge Activity: As per PT/OT instructions Patient Instructions: Atorvastatin (By mouth), Clopidogrel (By mouth), Urinary Tract Infection in Men (GEN), Meningioma (GEN), Ischemic Stroke (DC), Self Care Measures After a Stroke (DC), Hypertension (GEN), Stroke Stoplight Activity Restrictions/Additional Instructions: We would like to watch you in the hospital an additional day, so please be cautious due to concern for worsening symptoms of stroke, stroke progression, disability or . Please return to the hospital at any time to continue treatment or definitely if you feel any worse. Please maintain strict fall precautions. Aspiration precautions. Follow recommendations of speech therapy, PT and OT to stay safe and avoid detrimental events from residual effects after your stroke. Please monitor blood pressure 3 times daily at least, record values to bring to your appointment. [facility] you want to manage your blood pressure to a target of less than 130/80, however, please avoid low blood pressure especially in the several days after your stroke. Resume your blood pressure medications slowly after discharge. Tomorrow restarting half dose of lisinopril, then full dose lisinopril (20mg), then add back Lasix and spironolactone day after, then day after finally resuming amlodipine if blood pressure stays above 120-130 systolic. If your blood pressure is very high despite taking your medications please call your doctor, or if higher than 180 top number persistently, please call 911. Similarly please seek medical attention/call 911 immediately if you experience any new numbness, weakness, slurred speech, or other symptoms that may suggest a stroke. Please note you are started on Plavix in addition to aspirin for 21 days to reduce the chance of additional stroke. Please discuss with your primary care doctor and neurologist regarding duration of this medication. Your cholesterol medication is also changed to a high intensity dose with atorvastatin. Discuss referral to neurology with your primary care doctor for additional assessment. Please discuss with your primary care doctor and neurologist regarding chronic 50-60% basilar artery stenosis (artery at the underside of your brain). Discuss with your doctor consideration to refer for MRI brain (unable to complete here due to weight restriction). Continue to work with your primary care doctor to optimize control of diabetes, with A1c 8.6, target A1c of 7-8. Please work with your primary care doctor with regards to weight loss. Continue CPAP for sleep apnea. Please have your primary care provider obtain echocardiogram results and discuss as this test has not been assessed at the time of your discharge and may hold important information. Please discuss with your primary care doctor and neurologist regarding incidentally found meningioma (small tumor) in your brain. Please discuss additional follow-up to exclude future growth. Please note you are also prescribed an antibiotic for treatment of urinary tract infection. If you experience any high fevers, any confusion, any difficulty urinating, or any severe diarrhea or other abnormal symptoms, please seek medical attention. Please beware that urinary culture is not complete and the antibiotic may need to change based on culture results. Please follow up with your primary care doctor regarding culture results. Discuss with your primary care doctor stable nodule seen in our thyroid. Discharge Attestations Time Spent in Discharge Care*: greater than 30 min Quality Metrics Clinical Quality Measures During this hospital stay, did patient experience: Stroke Contraindication to Antithrombotic: Antithrombotic prescribed Contraindication to Anticoagulation: Overlap treatment not indicated Contraindication to Statin: Statin prescribed Coding Level of Care Code [employer] Former [employer] for [employer] Diagnoses Acute CVA (cerebrovascular accident) I63.9 UTI (urinary tract infection) N39.0 Diabetes mellitus E11.9 Hyperlipidemia E78.5 Hypertension I10
[2020-05-25 17:40] LABS: Glucose Point of Care 264 mg/dL (70-110)
== END 2020-05-25 16:30 | disposition left against medical advice (07) ==
LOC: ER 18:09 → MEDSURG 19:34
PROVIDERS: Admitting Provider Internal Medicine; Emergency Provider Family Medicine; PCP Internal Medicine; Visit Provider Internal Medicine
DX: I63.9 Cerebral infarction, unspecified (principal); N39.0 Urinary tract infection, site not specified; E11.9 Type 2 diabetes mellitus without complications; I10 Essential (primary) hypertension; E66.01 Morbid (severe) obesity due to excess calories; Z68.43 Body mass index [BMI] 50.0-59.9, adult; Z79.4 Long term (current) use of insulin; E78.5 Hyperlipidemia, unspecified; C61 Malignant neoplasm of prostate; Z92.3 Personal history of irradiation; G47.33 Obstructive sleep apnea (adult) (pediatric)
CPT/HCPCS: 12345; 36415; 36416; 70450; 70496; 70498; 71045; 80053; 80061; 80306; 81001; 82962; 83036; 84443; 85025; 85610; 85730; 87077; 87086; 87186; 92523; 92610; 93005; 93306; 96372; 97161; 97530; 99282; 99285; G0378; J0696; J1650; J1815; Q9967

== ENCOUNTER 2021-06-28 13:09 | Outpatient (CLI) | payer OTHER, SELFPAY ==
--- NOTE | 2021-06-28 13:16 | US_ITS ---
WS: [id number] RENAL ULTRASOUND HISTORY: FOLLOW UP KIDNEY CYSTS COMPARISON: CT 08/25/2018, 08/26/2018 TECHNIQUE: 2-D and color Doppler imaging of the kidney submitted. Right kidney: 13.4 cm x 6.7 cm x 7.6 cm. Normal size RIGHT kidney. Exophytic cyst from the RIGHT kidney measures 3.4 x 3.4 x 3.6 cm. This appe ars to be from the mid kidney. There is an additional very poorly visualized mass extending posterior from the superior kidney measuring 2.8 x 2.0 x 2.2 cm. This is poorly visualized due to patient's remigio dy habitus. Left kidney: 14.5 cm x 8.5 cm x 8.4 cm. Normal size kidney. Kidney is very difficult to visualize due to body habitus. Aorta: Not visualized. Urinary Bladder: Normally distended. US/US renal BI* [id number] IMPRESSION: 1. Technically very difficult evaluation of the kidneys due to body habitus. 2. No hydronephrosis. 3. Simple cyst RIGHT kidney. 4. Additional mass from the RIGHT kidney may be a complex cyst or solid mass f rom the superior pole. Poorly visualized due to patient's body habitus. Conside r follow-up renal mass CT protocol.
== END 2021-06-28 13:10 | disposition home or self-care (01) ==
LOC: RAD 13:10
PROVIDERS: PCP Internal Medicine; Visit Provider Internal Medicine Nephrology
DX: Q61.02 Congenital multiple renal cysts (principal); N28.89 Other specified disorders of kidney and ureter
CPT/HCPCS: 76770

== ENCOUNTER → 2021-07-26 16:00 | Outpatient (BNVA) | payer OTHER, SELFPAY | PROVIDERS: PCP Internal Medicine; Visit Provider Surgery | DX: K92.1 Melena (principal); Z20.822 Contact with and (suspected) exposure to COVID-19 | CPT/HCPCS: 87635 ==

== ENCOUNTER 2021-11-16 06:00 | Outpatient (RCR) | payer OTHER, SELFPAY | END 2021-12-08 23:59 | disposition home or self-care (01) | LOC: SPT 06:00 | PROVIDERS: Referring Provider Internal Medicine; Visit Provider Internal Medicine | DX: R60.0 Localized edema (principal) | CPT/HCPCS: 29581; 97140; 97162 ==

== ENCOUNTER 2021-12-09 | Outpatient (RCR) | payer OTHER, SELFPAY | END 2022-01-08 23:59 | disposition home or self-care (01) | LOC: SPT | PROVIDERS: Referring Provider Internal Medicine; Visit Provider Internal Medicine | DX: R60.0 Localized edema (principal) | CPT/HCPCS: 29581; 97164 ==

== ENCOUNTER 2022-05-23 14:28 | Emergency (ER) | payer OTHER, SELFPAY ==
[2022-05-23] VITALS (8 sets, daily range): BP systolic 135–185; BP diastolic 65–99; PULSE 72–78; RESP 10–16; TEMP 36.8; O2SAT 95–98
[2022-05-23 16:06] LABS: Basophils # 0.1 10^3/uL (0.0-0.1); Basophils % 0.7 %; Eosinophils # 0.3 10^3/uL (0.0-0.8); Eosinophils % 3.3 %; Hematocrit 42.6 % (42.0-52.0); Hemoglobin 14.2 g/dL (11.7-16.6); Lymphocytes # 2.4 10^3/uL (0.8-4.8); Lymphocytes % 29.9 %; Mean Corpuscular HGB Conc 33.3 g/dL (30.0-36.0); Mean Corpuscular Hemoglobin 29.9 pg (28.0-34.0); Mean Corpuscular Volume 89.7 fl (80-94); Mean Platelet Volume 11.6 fL (7.4-10.4); Monocytes # 0.7 10^3/uL (0.2-0.9); Monocytes % 8.2 %; Neutrophils # 4.65 10^3/uL (1.8-7.7); Neutrophils % 57.7 %; Nucleated Red Blood Cells % 0 %; Platelet Count 251 10^3/cmm (130-400); Red Blood Count 4.75 10^6/uL (4.1-5.3); Red Cell Distribution Width 13.6 % (12.1-15.1); White Blood Count 8.1 10^3/uL (4.0-10.0)
[2022-05-23 16:40] LABS: Alanine Aminotransferase 18 U/L (0-41); Albumin Level 3.3 g/dL (3.5-5.2); Alkaline Phosphatase 105 U/L (40-130); Anion Gap 19.5 (5-19); Aspartate Amino Transferase 14 U/L (0-40); Blood Urea Nitrogen 15 mg/dL (8-23); Calcium 9.7 mg/dL (8.5-10.5); Carbon Dioxide 23 mmol/L (22-29); Chloride 102 mmol/L (98-107); Globulin 3.3 g/dL (1.3-4.6); Glomerular Filtration Rate 165.4 mL/min (90-130); Glucose 109 mg/dL (65-115); NT Pro B Type Natriuretic Pept 564 pg/mL (0-125); Osmolality Calculated 293 mOsm/kg (285-295); Potassium 3.5 mmol/L (3.5-5.1); Sodium 141 mmol/L (136-145); Total Bilirubin 0.4 mg/dL (0.15-1.2); Total Protein 6.6 g/dL (6.6-8.7)
--- NOTE | 2022-05-23 16:42 | W.ED.BACK ---
Documented by User: Ashwin Dangelo DO 05/24/22 14:52 HPI - Back Pain/Injury General: Chief Complaint: Back Pain/Injury Stated Complaint: weakness Time Seen by Provider: 05/23/22 16:42 Source: patient Mode of arrival: ambulatory History of Present Illness: 59-year-old male presents emergency room with sudden onset of weakness in both of his lower extremities he is not had any fecal incontinence or urinary retention. He has not previously had any back problems. He denies any trauma or falls. No fever sweats or chills. He has weakness in the legs but no pain radiating down leg. Patient has chronic stasis edema in his lower extremities requiring aggressive compression of his lower extremities he can still move his legs but has decreased sensation and strength. Today he was suddenly unable to ambulate or bear weight and was advised to come to the ER. Onset (ago): hour(s) Timing: constant Severity: moderate Similar Symptoms Previously: No Quality: tingling Radiation: left upper leg, right upper leg, left leg below the knee and right leg below the knee Exacerbating factors: walking Relieving factors: none Associated symptoms: Deny abdominal pain, arthralgias, chills, change in bowel habits, difficulty walking, dysuria, fatigue, fecal incontinence, fever(s), hematuria, myalgias, nausea, numbness, syncope, tingling/numbness/burning, urinary frequency, urinary urgency, vomiting or weakness Review of Systems Const: Denies: fever(s), chills or fatigue ENMT: Denies: throat pain, ear or mastoid pain, nasal discharge or nasal congestion Card: Reports: edema; Denies: chest pain, palpitations, irregular heart rhythm or syncope Resp: Denies: dyspnea, productive cough or non-productive cough GI: Denies: abdominal pain, nausea, vomiting, fecal incontinence or change in bowel habits : Denies: dysuria, urinary frequency, urinary urgency or hematuria Skin/Breast: Denies: rash or pruritus Neuro: Denies: difficulty walking PFSH ED PFSH: Medical History Congestive heart failure Diabetes mellitus Hyperlipidemia Hypertension Lymphedema Prostate cancer Status post radiotherapy Sleep apnea Surgical History H/O hemorrhoidectomy History of tonsillectomy Family History Father Family history of premature coronary artery disease [place] age 46 Social History Smoking and tobacco status: never smoked Alcohol intake: never Household members: spouse Housing: House Physical Exam Const: COMMON NORMALS: no acute distress GENERAL APPEARANCE: cooperative and comfortable ORIENTATION/CONSCIOUSNESS: Yes awake, Yes oriented to person, Yes oriented to place and Yes oriented to time HENMT: COMMON NORMALS: normocephalic, atraumatic and hearing grossly normal bilaterally HEAD & SCALP: normocephalic and atraumatic Resp: COMMON NORMALS: normal respiratory effort, No retractions, No use of accessory muscles and clear to auscultation bilaterally AUSCULTATION: clear to auscultation bilaterally Cardio: COMMON NORMALS: regular rate, regular rhythm and No murmurs present (Cardio) RATE: regular rate RHYTHM: regular rhythm GI: COMMON NORMALS: Soft to palpation and No hepatosplenomegaly present AUSCULTATION: Yes normoactive bowel sounds PALPATION: Yes Soft to palpation, No Tenderness to palpation present (GI), No Guarding due to palpation present (GI) and Yes No hepatosplenomegaly present Extremity: OTHER: Chronic venous extremity lower extremity sensation normal at the feet but interestingly he has lost sensation anterior thighs bilaterally. Straight leg raising is negative patient is able to dorsi and plantarflex however he is quite weak in the left leg he tells me that has been chronic. Straight leg raising is unremarkable. Neuro: SENSORIUM/ORIENTATION: Yes oriented to person, Yes oriented to place and Yes oriented to time Skin: COMMON NORMALS: no rashes or lesions noted GENERAL SKIN EXAM: no rashes or lesions noted Course Vital Signs: Vital signs: Vital Signs Temperature 98.2 F 05/23/22 14:30 Pulse Rate 78 05/23/22 20:10 Respiratory Rate 15 05/23/22 20:10 Blood Pressure 172/99 05/23/22 20:10 Pulse Oximetry 98 05/23/22 20:10 Oxygen Delivery Me thod 05/23/22 19:01 MDM - Back Pain/Injury Medical Decision Making Patient initially seen concerned about a sudden onset of weakness. We did do a CT of his back shows pretty significant stenosis. We will get MRI of his lumbar spine I discussed with Dr. Caceres who is coming on duty. Care signed out to Dr. Caceres at change of shift. See final notes for diagnosis and disposition. Patient presents with back pain has been chronic in nature MRI here does show stenosis I went over these findings with Dr. Tam recommended steroids and follow-up patient feels improved would like to go home he is to follow-up with Dr. Silver he states that he he [facility] he has any worsening symptoms he is to return here he understands agrees to plan. Medical Records I reviewed the patient's medical records. Labs I reviewed the patient's lab results. 05/23/22 15:56 05/23/22 15:56 Radiology Impressions Lumbar Spine CT 05/23/22 16:52 IMPRESSION: 1. Advanced multilevel degenerative disc changes are noted throughout the lumbar spine. Particular note made of moderate to severe spinal stenosis due to spondylosis at L3-L4. 2. Mild spinal stenosis demonstrated at L1-L2. 3. Moderate stenosis demonstrated at L2-L3. Lumbar Spine MRI 05/23/22 17:46 IMPRESSION: 1. Advanced spondylosis demonstrated at L1-L2, L2-L3, L3-L4, and L4-L5. There is severe spinal canal stenosis with compression of the thecal sac, and severe bilateral neural foraminal stenosis at this level. 2. Spondylitic change at L5-S1 results in severe bilateral neural foraminal stenosis. The central spinal canal appears patent at this level. Laboratory Results WBC 8.1 10^3/uL (4.0-10.0) 05/23/22 15:56 RBC 4.75 10^6/uL (4.1-5.3) 05/23/22 15:56 Hgb 14.2 g/dL (11.7-16.6) 05/23/22 15:56 Hct 42.6 % (42.0-52.0) 05/23/22 15:56 MCV 89.7 fl (80-94) 05/23/22 15:56 MCH 29.9 pg (28.0-34.0) 05/23/22 15:56 MCHC 33.3 g/dL (30.0-36.0) 05/23/22 15:56 RDW 13.6 % (12.1-15.1) 05/23/22 15:56 Plt Count 251 10^3/cmm (130-400) 05/23/22 15:56 MPV 11.6 fL (7.4-10.4) H 05/23/22 15:56 Neut % (Auto) 57.7 % 05/23/22 15:56 Lymph % (Auto) 29.9 % 05/23/22 15:56 Nelson % (Auto) 8.2 % 05/23/22 15:56 Eos % (Auto) 3.3 % 05/23/22 15:56 Baso % (Auto) 0.7 % 05/23/22 15:56 Neut # (Auto) 4.65 10^3/uL (1.8-7.7) 05/23/22 15:56 Lymph # (Auto) 2.4 10^3/uL (0.8-4.8) 05/23/22 15:56 Nelson # (Auto) 0.7 10^3/uL (0.2-0.9) 05/23/22 15:56 Eos # (Auto) 0.3 10^3/uL (0.0-0.8) 05/23/22 15:56 Baso # (Auto) 0.1 10^3/uL (0.0-0.1) 05/23/22 15:56 Nucleated RBC % (auto) 0 % 05/23/22 15:56 Nucleated RBCs # 0.0 /100WBC 05/23/22 15:56 Sodium 141 mmol/L (136-145) 05/23/22 15:56 Potassium 3.5 mmol/L (3.5-5.1) 05/23/22 15:56 Chloride 102 mmol/L (98-107) 05/23/22 15:56 Carbon Dioxide 23 mmol/L (22-29) 05/23/22 15:56 Anion Gap 19.5 (5-19) H 05/23/22 15:56 BUN 15 mg/dL (8-23) 05/23/22 15:56 Creatinine 0.5 mg/dL (0.7-1.2) L 05/23/22 15:56 GFR Calculation 165.4 mL/min (90-130) H 05/23/22 15:56 Glucose 109 mg/dL (65-115) 05/23/22 15:56 Calculated Osmolality 293 mOsm/kg (285-295) 05/23/22 15:56 Calcium 9.7 mg/dL (8.5-10.5) 05/23/22 15:56 Total Bilirubin 0.4 mg/dL (0.15-1.2) 05/23/22 15:56 AST 14 U/L (0-40) 05/23/22 15:56 ALT 18 U/L (0-41) 05/23/22 15:56 Alkaline Phosphatase 105 U/L (40-130) 05/23/22 15:56 NT-Pro-B Natriuret Pep 564 pg/mL (0-125) H 05/23/22 15:56 Total Protein 6.6 g/dL (6.6-8.7) 05/23/22 15:56 Albumin 3.3 g/dL (3.5-5.2) L 05/23/22 15:56 Globulin 3.3 g/dL (1.3-4.6) 05/23/22 15:56 Discharge Plan Discharge Patient Disposition: Home Clinical Impression: Low back pain Condition: Stable Prescriptions: New hydrocodone-acetaminophen 5-325 mg tablet 1 tab PO Q6H PRN (Reason: pain) Qty: 14 0RF prednisone 50 mg tablet 50 mg PO DAILY Qty: 5 0RF No Action ezetimibe 10 mg Tablet 10 mg PO DAILY amlodipine 5 mg Tablet 5 mg PO DAILY@0800 metformin 1,000 mg Tablet 1,000 mg PO BID@08,20 allopurinol 300 mg Tablet 300 mg PO BID gabapentin 300 mg Tablet Extended Release 24 Hr 300 mg PO BID@08,20 clopidogrel 75 mg Tablet 75 mg PO DAILY Qty: 20 0RF clonidine 0.2 mg/24 hr Patch Weekly 1 patch transdermal Q7D omeprazole 40 mg Capsule,Delayed Release(Dr/Ec) 40 mg PO DAILY terazosin 2 mg Capsule 2 mg PO TID Iron (ferrous sulfate) 325 mg (65 mg iron) Tablet 325 mg PO DAILY furosemide 20 mg Tablet 10 mg PO DAILY PRN (Reason: Edema) labetalol 300 mg Tablet 300 mg PO BID lisinopril 40 mg Tablet 40 mg PO DAILY Tylenol 325 mg Capsule 650 mg PO BID Vitamin D3 25 mcg (1,000 unit) Tablet 25 mcg PO DAILY Discharge Orders: Discharge ED (Routine); Ordered 05/23/22 Ordered By: Jorge Caceres Discharge Diet: Advance as tolerated Discharge Activity: Resume usual activity Patient Instructions: Back Pain (ED) Coding Level of Care Code ED Supervisor Last Model Department for Chg Fwd Documented by User: Jorge Caceres MD 05/23/22 20:44 HPI - Back Pain/Injury General: Chief Complaint: Back Pain/Injury Stated Complaint: weakness Time Seen by Provider: 05/23/22 16:42 History of Present Illness: . PFSH ED PFSH: Medical History Congestive heart failure Diabetes mellitus Hyperlipidemia Hypertension Lymphedema Prostate cancer Status post radiotherapy Sleep apnea Surgical History H/O hemorrhoidectomy History of tonsillectomy Family History Father Family history of premature coronary artery disease [place] age 46 Social History Smoking and tobacco status: never smoked Alcohol intake: never Household members: spouse Housing: House Course Vital Signs: Vital signs: Vital Signs Temperature 98.2 F 05/23/22 14:30 Pulse Rate 78 05/23/22 20:10 Respiratory Rate 15 05/23/22 20:10 Blood Pressure 172/99 05/23/22 20:10 Pulse Oximetry 98 05/23/22 20:10 Oxygen Delivery Me thod 05/23/22 19:01 MDM - Back Pain/Injury Medical Decision Making Patient presents with back pain has been chronic in nature MRI here does show stenosis I went over these findings with Dr. Tam recommended steroids and follow-up patient feels improved would like to go home he is to follow-up with Dr. Adrianne he states that he he [facility] he has any worsening symptoms he is to return here he understands agrees to plan. Labs 05/23/22 15:56 05/23/22 15:56 Radiology Impressions Lumbar Spine CT 05/23/22 16:52 IMPRESSION: 1. Advanced multilevel degenerative disc changes are noted throughout the lumbar spine. Particular note made of moderate to severe spinal stenosis due to spondylosis at L3-L4. 2. Mild spinal stenosis demonstrated at L1-L2. 3. Moderate stenosis demonstrated at L2-L3. Lumbar Spine MRI 05/23/22 17:46 IMPRESSION: 1. Advanced spondylosis demonstrated at L1-L2, L2-L3, L3-L4, and L4-L5. There is severe spinal canal stenosis with compression of the thecal sac, and severe bilateral neural foraminal stenosis at this level. 2. Spondylitic change at L5-S1 results in severe bilateral neural foraminal stenosis. The central spinal canal appears patent at this level. Laboratory Results WBC 8.1 10^3/uL (4.0-10.0) 05/23/22 15:56 RBC 4.75 10^6/uL (4.1-5.3) 05/23/22 15:56 Hgb 14.2 g/dL (11.7-16.6) 05/23/22 15:56 Hct 42.6 % (42.0-52.0) 05/23/22 15:56 MCV 89.7 fl (80-94) 05/23/22 15:56 MCH 29.9 pg (28.0-34.0) 05/23/22 15:56 MCHC 33.3 g/dL (30.0-36.0) 05/23/22 15:56 RDW 13.6 % (12.1-15.1) 05/23/22 15:56 Plt Count 251 10^3/cmm (130-400) 05/23/22 15:56 MPV 11.6 fL (7.4-10.4) H 05/23/22 15:56 Neut % (Auto) 57.7 % 05/23/22 15:56 Lymph % (Auto) 29.9 % 05/23/22 15:56 Nelson % (Auto) 8.2 % 05/23/22 15:56 Eos % (Auto) 3.3 % 05/23/22 15:56 Baso % (Auto) 0.7 % 05/23/22 15:56 Neut # (Auto) 4.65 10^3/uL (1.8-7.7) 05/23/22 15:56 Lymph # (Auto) 2.4 10^3/uL (0.8-4.8) 05/23/22 15:56 Nelson # (Auto) 0.7 10^3/uL (0.2-0.9) 05/23/22 15:56 Eos # (Auto) 0.3 10^3/uL (0.0-0.8) 05/23/22 15:56 Baso # (Auto) 0.1 10^3/uL (0.0-0.1) 05/23/22 15:56 Nucleated RBC % (auto) 0 % 05/23/22 15:56 Nucleated RBCs # 0.0 /100WBC 05/23/22 15:56 Sodium 141 mmol/L (136-145) 05/23/22 15:56 Potassium 3.5 mmol/L (3.5-5.1) 05/23/22 15:56 Chloride 102 mmol/L (98-107) 05/23/22 15:56 Carbon Dioxide 23 mmol/L (22-29) 05/23/22 15:56 Anion Gap 19.5 (5-19) H 05/23/22 15:56 BUN 15 mg/dL (8-23) 05/23/22 15:56 Creatinine 0.5 mg/dL (0.7-1.2) L 05/23/22 15:56 GFR Calculation 165.4 mL/min (90-130) H 05/23/22 15:56 Glucose 109 mg/dL (65-115) 05/23/22 15:56 Calculated Osmolality 293 mOsm/kg (285-295) 05/23/22 15:56 Calcium 9.7 mg/dL (8.5-10.5) 05/23/22 15:56 Total Bilirubin 0.4 mg/dL (0.15-1.2) 05/23/22 15:56 AST 14 U/L (0-40) 05/23/22 15:56 ALT 18 U/L (0-41) 05/23/22 15:56 Alkaline Phosphatase 105 U/L (40-130) 05/23/22 15:56 NT-Pro-B Natriuret Pep 564 pg/mL (0-125) H 05/23/22 15:56 Total Protein 6.6 g/dL (6.6-8.7) 05/23/22 15:56 Albumin 3.3 g/dL (3.5-5.2) L 05/23/22 15:56 Globulin 3.3 g/dL (1.3-4.6) 05/23/22 15:56 Discharge Plan Discharge Patient Disposition: Home Clinical Impression: Low back pain Condition: Stable Prescriptions: New hydrocodone-acetaminophen 5-325 mg tablet 1 tab PO Q6H PRN (Reason: pain) Qty: 14 0RF prednisone 50 mg tablet 50 mg PO DAILY Qty: 5 0RF No Action ezetimibe 10 mg Tablet 10 mg PO DAILY amlodipine 5 mg Tablet 5 mg PO DAILY@0800 metformin 1,000 mg Tablet 1,000 mg PO BID@08,20 allopurinol 300 mg Tablet 300 mg PO BID gabapentin 300 mg Tablet Extended Release 24 Hr 300 mg PO BID@08,20 clopidogrel 75 mg Tablet 75 mg PO DAILY Qty: 20 0RF clonidine 0.2 mg/24 hr Patch Weekly 1 patch transdermal Q7D omeprazole 40 mg Capsule,Delayed Release(Dr/Ec) 40 mg PO DAILY terazosin 2 mg Capsule 2 mg PO TID Iron (ferrous sulfate) 325 mg (65 mg iron) Tablet 325 mg PO DAILY furosemide 20 mg Tablet 10 mg PO DAILY PRN (Reason: Edema) labetalol 300 mg Tablet 300 mg PO BID lisinopril 40 mg Tablet 40 mg PO DAILY Tylenol 325 mg Capsule 650 mg PO BID Vitamin D3 25 mcg (1,000 unit) Tablet 25 mcg PO DAILY Discharge Orders: Discharge ED (Routine); Ordered 05/23/22 Ordered By: Jorge Caceres Discharge Diet: Advance as tolerated Discharge Activity: Resume usual activity Patient Instructions: Back Pain (ED) Coding Level of Care Code ED Supervisor Last Model Department for Roman Bermudez
--- NOTE | 2022-05-23 16:52 | CTR_ITS ---
PROCEDURE INFORMATION: Exam: CT Lumbar Spine Without Contrast Exam date and time: 05/23/2022 5:09 PM Age: 67 years old Clinical indication: Low back pain and other: Radiculopathy to eric lower legs; Additional info: Extremity weakness TECHNIQUE: Imaging protocol: Computed tomography of the lumbar spine without contrast. Radiation optimization: All CT scans at this facility use at least one of these dose optimization techniques: automated exposure control; mA and/or kV adjustment per patient size (includes targeted exams where dose is matched to clinical indication); or iterative reconstruction. COMPARISON: CT pelvis wo con [id number] 08/26/2018 8:15 AM RADIATION DOSE METRICS: Total DLP (mGy-cm): 1652.2 FINDINGS: Bones/joints: Vertebral body heights are preserved. No compression fractures are noted. Vertebral alignment is physiologic. Severe degenerative disc narrowing and vacuum disc phenomenon at L1-L2, L2-L3, L3-L4, and L4-L5. Posterior disc/osteophyte complexes noted at each of these levels. There is moderate to severe spinal stenosis demonstrated at L3-L4. Mild spinal stenosis demonstrated at L1-L2. Moderate stenosis at L2-L3. Degenerative facet joint changes are noted throughout the lumbar spine. Soft tissues: Paraspinous soft tissues are unremarkable. CT/CT lumbar spine wo con* [id number] IMPRESSION: 1. Advanced multilevel degenerative disc changes are noted throughout the lumbar spine. Particular note made of moderate to severe spinal stenosis due to spondylosis at L3-L4. 2. Mild spinal stenosis demonstrated at L1-L2. 3. Moderate stenosis demonstrated at L2-L3.
--- NOTE | 2022-05-23 17:46 | MRR_ITS ---
PROCEDURE INFORMATION: Exam: MR Lumbar Spine Without Contrast Exam date and time: 05/23/2022 7:24 PM Age: 67 years old Clinical indication: Low back pain; Additional info: Cauda equina TECHNIQUE: Imaging protocol: Magnetic resonance imaging of the lumbar spine without contrast. COMPARISON: CT lumbar spine wo con* [id number] 05/23/2022 5:09 PM FINDINGS: Bones/joints: Lumbar spine alignment is physiologic. No compression fractures are noted. No focal vertebral lesions are seen. Spinal cord: The conus medullaris is normal in position and morphology. T12-L1: Normal disc height. No disc bulge or protrusion. No spinal canal or neural foraminal stenosis. L1-L2: Severe disc degeneration and 5 mm posterior disc protrusion. Congenitally shortened pedicles and severe hypertrophic facet joint changes. Severe spinal canal stenosis and severe bilateral neural foraminal stenosis associated. The thecal sac appears compressed by the degree of spinal canal stenosis. L2-L3: Severe disc degeneration and 5 mm disc/osteophyte complex noted. Congenitally shortened pedicles and severe hypertrophic facet joint changes. Severe spinal canal stenosis and severe bilateral neural foraminal stenosis associated. The thecal sac appears compressed by the degree of spinal canal stenosis. L3-L4: Moderate degenerative disc narrowing. 5 mm posterior disc/osteophyte complex. Hypertrophic facet joint changes and congenitally shortened pedicles. Severe spinal canal stenosis and severe bilateral neural foraminal stenosis noted. The thecal sac appears compressed by the degree of spinal canal stenosis. L4-L5: Advanced disc degeneration and 5 mm posterior disc/osteophyte complex. Hypertrophic facet joint changes and congenitally shortened pedicles. Severe spinal canal stenosis and severe neural foraminal stenosis noted. The thecal sac appears compressed by the degree of spinal canal stenosis. L5-S1: Advanced disc degeneration. Hypertrophic facet joint changes. Central spinal canal is patent. Severe bilateral neural foraminal stenosis noted. The thecal sac appears compressed by the degree of spinal canal stenosis. Soft tissues: Paraspinous soft tissues are unremarkable. MR/MR lumbar spine wo con* [id number] IMPRESSION: 1. Advanced spondylosis demonstrated at L1-L2, L2-L3, L3-L4, and L4-L5. There is severe spinal canal stenosis with compression of the thecal sac, and severe bilateral neural foraminal stenosis at this level. 2. Spondylitic change at L5-S1 results in severe bilateral neural foraminal stenosis. The central spinal canal appears patent at this level.
--- NOTE | 2022-05-23 19:15 | PC.NURSE ---
patient transported to MRI via wheelchair
[2022-05-23] MEDS: predniSONE 20 mg Tablet 60 MG PO (20:53)
--- NOTE | 2022-05-24 13:44 | DCPLANNER ---
Addendum entered by Saniya Resendiz 05/26/22 13:54: manager fraud received the following message from the ortho clinic regarding follow up appointment: spoke to patient, [facility] he [facility] all his dr with [facility] and in the [facility] area and is doing much better after the ER visit Original Note: manager fraud had message to schedule a follow up appointment for patient with ortho. manager fraud sent patients information to the front office staff at ortho. Patients information will be printed and reviewed. Clinic will call patient with appointment information.
== END 2022-05-23 20:59 | disposition home or self-care (01) ==
PROVIDERS: Emergency Medicine; Emergency Provider Emergency Medicine
DX: M54.50 Low back pain, unspecified (principal); Z79.84 Long term (current) use of oral hypoglycemic drugs; Z79.02 Long term (current) use of antithrombotics/antiplatelets; I11.0 Hypertensive heart disease with heart failure; I50.9 Heart failure, unspecified; E11.9 Type 2 diabetes mellitus without complications; E78.5 Hyperlipidemia, unspecified; Z85.46 Personal history of malignant neoplasm of prostate
CPT/HCPCS: 36415; 72131; 72148; 80053; 83880; 85025; 99285; J7512

== ENCOUNTER 2022-07-07 06:00 | Outpatient (RCR) | payer OTHER, SELFPAY | END 2022-07-11 23:59 | disposition home or self-care (01) | LOC: SPT 06:00 | PROVIDERS: Visit Provider Internal Medicine | DX: R26.9 Unspecified abnormalities of gait and mobility (principal) | CPT/HCPCS: 97161 ==

== ENCOUNTER 2022-07-12 06:00 | Outpatient (RCR) | payer OTHER, SELFPAY | END 2022-08-08 23:59 | disposition home or self-care (01) | LOC: SPT 06:00 | PROVIDERS: Visit Provider Internal Medicine | DX: R26.9 Unspecified abnormalities of gait and mobility (principal) | CPT/HCPCS: 97110 ==

== ENCOUNTER 2022-08-09 06:00 | Outpatient (RCR) | payer OTHER, SELFPAY | END 2022-09-08 23:59 | disposition home or self-care (01) | LOC: SPT 06:00 | PROVIDERS: Visit Provider Internal Medicine | DX: R26.9 Unspecified abnormalities of gait and mobility (principal) | CPT/HCPCS: 97110 ==

== ENCOUNTER 2022-09-09 06:00 | Outpatient (RCR) | payer OTHER, SELFPAY | END 2022-10-08 23:59 | disposition home or self-care (01) | LOC: SPT 06:00 | PROVIDERS: Visit Provider Internal Medicine | DX: R26.9 Unspecified abnormalities of gait and mobility (principal) | CPT/HCPCS: 97110 ==

== ENCOUNTER → 2022-09-12 11:35 | Outpatient (BNVA) | payer OTHER, SELFPAY | PROVIDERS: Visit Provider Podiatrist Foot & Ankle Surgery | DX: M25.371 Other instability, right ankle (principal); M19.071 Primary osteoarthritis, right ankle and foot; M21.172 Varus deformity, not elsewhere classified, left ankle | CPT/HCPCS: 73610; 99204 ==

== ENCOUNTER → 2022-12-28 14:12 | Outpatient (BNVA) | payer OTHER, SELFPAY | PROVIDERS: Visit Provider Podiatrist Foot & Ankle Surgery | DX: M21.172 Varus deformity, not elsewhere classified, left ankle (principal); M19.071 Primary osteoarthritis, right ankle and foot; M25.371 Other instability, right ankle; M21.70 Unequal limb length (acquired), unspecified site | CPT/HCPCS: 99213 ==

== ENCOUNTER → 2023-07-12 07:45 | Outpatient (BNVA) | payer OTHER, SELFPAY | PROVIDERS: PCP Internal Medicine Hematology & Oncology; Visit Provider Podiatrist Foot & Ankle Surgery | DX: M21.172 Varus deformity, not elsewhere classified, left ankle; M19.071 Primary osteoarthritis, right ankle and foot; M25.371 Other instability, right ankle; M21.70 Unequal limb length (acquired), unspecified site | CPT/HCPCS: 99213 ==

== ENCOUNTER → 2023-12-03 07:42 | Outpatient (BNVA) | payer OTHER, SELFPAY | PROVIDERS: PCP Internal Medicine Hematology & Oncology; Visit Provider Podiatrist Foot & Ankle Surgery | DX: M21.172 Varus deformity, not elsewhere classified, left ankle; M19.071 Primary osteoarthritis, right ankle and foot; M25.371 Other instability, right ankle; M21.70 Unequal limb length (acquired), unspecified site; I73.9 Peripheral vascular disease, unspecified; L60.3 Nail dystrophy | CPT/HCPCS: 11721; 99213 ==

== ENCOUNTER 2023-12-19 08:24 | Outpatient (RCR) | payer OTHER, SELFPAY | END 2024-01-09 23:59 | disposition home or self-care (01) | LOC: SPT 08:24 | PROVIDERS: PCP Internal Medicine; Visit Provider Podiatrist Foot & Ankle Surgery | DX: M21.171 Varus deformity, not elsewhere classified, right ankle (principal); R26.89 Other abnormalities of gait and mobility | CPT/HCPCS: 97110; 97112; 97116; 97161 ==

== ENCOUNTER 2024-01-10 06:00 | Outpatient (RCR) | payer OTHER, SELFPAY | END 2024-02-09 23:59 | disposition home or self-care (01) | LOC: SPT 06:00 | PROVIDERS: PCP Internal Medicine; Visit Provider Podiatrist Foot & Ankle Surgery | DX: M21.171 Varus deformity, not elsewhere classified, right ankle (principal) | CPT/HCPCS: 97110; 97116 ==

== ENCOUNTER → 2024-02-05 07:40 | Outpatient (BNVA) | payer OTHER, SELFPAY | PROVIDERS: PCP Internal Medicine; Visit Provider Podiatrist Foot & Ankle Surgery | DX: M21.172 Varus deformity, not elsewhere classified, left ankle (principal); M19.071 Primary osteoarthritis, right ankle and foot; M25.371 Other instability, right ankle; I73.9 Peripheral vascular disease, unspecified; L60.3 Nail dystrophy; M21.70 Unequal limb length (acquired), unspecified site; M21.80 Other specified acquired deformities of unspecified limb | CPT/HCPCS: 11721; 99213 ==

== ENCOUNTER 2024-02-10 06:00 | Outpatient (RCR) | payer OTHER, SELFPAY | END 2024-03-10 23:59 | disposition home or self-care (01) | LOC: SPT 06:00 | PROVIDERS: PCP Internal Medicine; Visit Provider Podiatrist Foot & Ankle Surgery | DX: M21.171 Varus deformity, not elsewhere classified, right ankle (principal); R26.89 Other abnormalities of gait and mobility | CPT/HCPCS: 97110; 97116 ==

== ENCOUNTER 2024-03-11 06:00 | Outpatient (RCR) | payer OTHER, SELFPAY | END 2024-04-10 23:59 | disposition home or self-care (01) | LOC: SPT 06:00 | PROVIDERS: PCP Internal Medicine; Visit Provider Podiatrist Foot & Ankle Surgery | DX: M21.171 Varus deformity, not elsewhere classified, right ankle (principal); R26.89 Other abnormalities of gait and mobility | CPT/HCPCS: 97110; 97116 ==

== ENCOUNTER 2024-04-14 06:41 | Outpatient (CLI) | payer OTHER, SELFPAY ==
--- NOTE | 2024-04-14 06:59 | US_ITS ---
WS: [id number] RENAL ULTRASOUND HISTORY: Cysts COMPARISON: 06/28/2021, CT 08/25/2018 TECHNIQUE: 2-D and color Doppler imaging of the kidney submitted. Right kidney: 13.4 cm x 5.8 cm x 5.9 cm. Cortex: 1.5 cm Kidney remains normal size. There are several cysts associated with the RIGHT kidney. The largest fro m the lower pole 3.7 x 3.9 x 4.2 cm this is a slightly complex cyst as there is a septation present. There is an additional cyst in the medial inferior pole which is less well visualized. There is a sma ller cyst in the mid kidney measuring 1.9 x 2.4 x 2.0 cm. No hydronephrosis. Left kidney: 13.0 cm x 5.3 cm x 6.7 cm. Cortex: 1.4 cm Normal size kidney. Exophytic cyst from the mid kidney 2.8 x 3.0 x 2.7 cm. No solid mass. Aorta: Normal. Urinary Bladder: Moderately well distended. US/US renal BI* [id number] IMPRESSION: 1. No renal obstruction. 2. Bilateral renal cysts. Some of these cysts are complex cystic and others no t as well visualized due to body habitus. The cyst have slightly increased in s ize since 06/28/2021. To confirm these are benign cysts renal mass CT protocol c an be obtained.
== END 2024-04-14 06:42 | disposition home or self-care (01) ==
PROVIDERS: PCP Internal Medicine; Visit Provider Physician Assistant
DX: Q61.02 Congenital multiple renal cysts (principal)
CPT/HCPCS: 76770

== ENCOUNTER → 2024-04-29 08:03 | Outpatient (BNVA) | payer OTHER, SELFPAY | PROVIDERS: PCP Internal Medicine; Visit Provider Podiatrist Foot & Ankle Surgery | DX: M21.80 Other specified acquired deformities of unspecified limb (principal); L60.3 Nail dystrophy; I73.9 Peripheral vascular disease, unspecified; M21.172 Varus deformity, not elsewhere classified, left ankle; M19.071 Primary osteoarthritis, right ankle and foot; M25.371 Other instability, right ankle; M21.70 Unequal limb length (acquired), unspecified site | CPT/HCPCS: 99213 ==

== ENCOUNTER 2024-07-01 11:33 | Outpatient (CLI) | payer OTHER, SELFPAY ==
--- NOTE | 2024-07-01 11:40 | CT_ITS ---
WS: [id number] CT ABDOMEN WITH AND WITHOUT CONTRAST HISTORY: RENAL CYSTS EVALUATION Multiphase axial imaging through the abdomen. Oral contrast has not been provided. Coronal and sagitt al reformats are submitted. All CT scans at [facility] use at least one of these dose optimiz ation techniques: automated exposure control; mA and/or kV adjustment per patient size (includes targ eted exams where dose is matched to clinical indication); or iterative reconstruction. IV CONTRAST: Omnipaque 350; 100 mL IV. Oral contrast: No DLP: 2881.60 mGy.cm COMPARISON: 08/25/2018, renal ultrasound 06/28/2021 and 04/14/2024 Lower thorax: Lung bases are clear. Mild cardiomegaly. New small pericardial effusion. No hiatal scottie ia. Liver/biliary system: Normal size with no intrahepatic dilatation. Gallbladder: Bladder is mildly hydropic but no adjacent wall thickening and no stones identified. No pericholecystic fluid. Pancreas: Normal size pancreas and pancreatic duct. No adjacent inflammation. Spleen: Normal size spleen. No mass or infarct. Splenic granulomata. Adrenal glands: Normal. Right kidney: 13.7 cm in length. Numerous low-attenuation masses throughout the renal cortex. Diffuse perinephric stranding. Some of the nodules are too small to characterize. The largest cysts are in t he lower pole. Largest cyst exophytic from the lower pole measures 4.6 x 4.0 cm. There is no enhancem ent within any of the cyst in the lower pole. There is an additional high density cortical cyst in th e mid kidney measuring 3.0 x 2.0 cm also which does not enhance. Consistent with a complex cyst. Ther e are additional scattered too small to characterize hypodensities. No renal obstruction. Left kidney: Perinephric stranding. Normal size kidney. Multiple cortical low-attenuation masses whic h is are too small to characterize. The largest cyst from the lower pole measures 2.8 x 2.9 cm and do es not enhance. Aorta: Mild atherosclerosis with no aneurysm. Lymphadenopathy: There are a few small mesenteric lymph nodes. There is mesenteric misting centrally associated with the small lymph nodes and pseudocapsule. Lymph nodes in the mesenteric stranding have slightly increased since 2019. Small retroperitoneal lymph nodes. Free fluid: None. GI tract: No obstruction. Postsurgical changes of associated with the stomach may be from prior gastr ic sleeve or bypass surgery. Abdominal wall: Unremarkable abdominal wall. No hernia. Visualized osseous structures: Unremarkable. CT/CT abdomen wo/w con [id number] IMPRESSION: 1. Numerous bilateral renal low-attenuation masses. The largest do not enhance and are consistent with simple and complex cysts. There are a few additional t oo small to characterize hypodensities within each renal cortex which cannot be further characterized. 2. No hydronephrosis or obstruction. 3. 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 This can be seen with mesenteric inflammation with fat or edema. Can be associated with prior surgery, trauma or infection.
[2024-07-01 12:35] LABS: Blood Urea Nitrogen 37 mg/dL (8-23); Glomerular Filtration Rate 73.9 mL/min (90-130)
[2024-07-01] MEDS: iohexol 350 mg/mL 500 mL Btl (per mL) IV (12:44)
== END 2024-07-01 11:34 | disposition home or self-care (01) ==
LOC: RAD 11:33
PROVIDERS: PCP Internal Medicine; Visit Provider Physician Assistant
DX: N28.1 Cyst of kidney, acquired (principal); K65.4 Sclerosing mesenteritis; R59.0 Localized enlarged lymph nodes; I51.7 Cardiomegaly; I31.39 Other pericardial effusion (noninflammatory); R93.3 Abnormal findings on diagnostic imaging of other parts of digestive tract; D73.89 Other diseases of spleen; R93.421 Abnormal radiologic findings on diagnostic imaging of right kidney; R93.422 Abnormal radiologic findings on diagnostic imaging of left kidney; I70.0 Atherosclerosis of aorta
CPT/HCPCS: 74170; 82565; 84520

== ENCOUNTER → 2024-08-04 08:14 | Outpatient (BNVA) | payer OTHER, SELFPAY | PROVIDERS: PCP Internal Medicine; Visit Provider Podiatrist Foot & Ankle Surgery | DX: I73.9 Peripheral vascular disease, unspecified (principal); L60.3 Nail dystrophy; M21.172 Varus deformity, not elsewhere classified, left ankle; M19.071 Primary osteoarthritis, right ankle and foot; M25.371 Other instability, right ankle; M21.70 Unequal limb length (acquired), unspecified site; M21.80 Other specified acquired deformities of unspecified limb; M21.861 Other specified acquired deformities of right lower leg | CPT/HCPCS: 11721; 99213 ==

== ENCOUNTER → 2024-10-06 07:51 | Outpatient (BNVA) | payer OTHER, SELFPAY | PROVIDERS: PCP Internal Medicine; Visit Provider Podiatrist Foot & Ankle Surgery | DX: E11.42 Type 2 diabetes mellitus with diabetic polyneuropathy (principal); L60.3 Nail dystrophy; I73.9 Peripheral vascular disease, unspecified | CPT/HCPCS: 11721 ==

== ENCOUNTER 2025-01-26 09:06 | Outpatient (RCR) | payer OTHER, SELFPAY | END 2025-02-08 23:59 | disposition home or self-care (01) | LOC: SPT 09:06 | PROVIDERS: PCP Internal Medicine; Visit Provider Internal Medicine | DX: R26.89 Other abnormalities of gait and mobility (principal) | CPT/HCPCS: 11721; 97161 ==

== ENCOUNTER 2025-02-09 05:00 | Outpatient (RCR) | payer OTHER, SELFPAY | END 2025-03-10 23:59 | disposition home or self-care (01) | LOC: SPT 05:00 | PROVIDERS: PCP Internal Medicine; Visit Provider Internal Medicine | DX: R26.89 Other abnormalities of gait and mobility (principal) | CPT/HCPCS: 97110; 97530 ==

== ENCOUNTER 2025-03-11 05:00 | Outpatient (RCR) | payer OTHER, SELFPAY | END 2025-04-10 23:59 | disposition home or self-care (01) | LOC: SPT 05:00 | PROVIDERS: PCP Internal Medicine; Visit Provider Internal Medicine | DX: R26.89 Other abnormalities of gait and mobility (principal) | CPT/HCPCS: 97110 ==

== ENCOUNTER 2025-04-11 05:00 | Outpatient (RCR) | payer OTHER, SELFPAY | END 2025-05-10 23:59 | disposition home or self-care (01) | LOC: SPT 05:00 | PROVIDERS: PCP Internal Medicine; Visit Provider Internal Medicine | DX: R26.89 Other abnormalities of gait and mobility (principal) | CPT/HCPCS: 97110 ==

== ENCOUNTER → 2025-04-27 09:04 | Outpatient (BNVA) | payer OTHER, SELFPAY | PROVIDERS: PCP Internal Medicine; Visit Provider Podiatrist Foot & Ankle Surgery | DX: E11.8 Type 2 diabetes mellitus with unspecified complications (principal); L60.3 Nail dystrophy; L60.8 Other nail disorders; I73.9 Peripheral vascular disease, unspecified; E11.42 Type 2 diabetes mellitus with diabetic polyneuropathy; M21.6X1 Other acquired deformities of right foot; Z79.84 Long term (current) use of oral hypoglycemic drugs | CPT/HCPCS: 11721; 99213 ==

== ENCOUNTER 2025-05-11 07:28 | Outpatient (CLI) | payer OTHER, SELFPAY ==
--- NOTE | 2025-05-11 07:40 | US_ITS ---
WS: [id number] RENAL ULTRASOUND HISTORY: Renal Cysts COMPARISON: 04/14/2024, 06/28/2021, CT 07/01/2024 TECHNIQUE: 2-D and color Doppler imaging of the kidney submitted. Right kidney: 11.9 cm x 6.7 cm x 6.2 cm. Cortex: 2.0 cm Reidentified are numerous cortical cysts. The largest from the lower pole measures 3.9 x 4.4 x 4.4 cm. There is an additional hypoechoic mass from the lower pole measuring 3.7 x 3.9 x 3.9 cm which has also been previously described and not increasing in size. This is probably a complex cyst. No enhancement on a prior CT from 07/01/2024. No new solid or suspicious mass identified. Left kidney: 12.7 cm x 4.6 cm x 7.1 cm. Cortex: 1.7 cm Normal size kidney with no hydronephrosis. Several cysts with through transmission are identified. The largest from the mid kidney measures 3.0 x 2.6 x 2.7 cm. This cyst did not enhance on the prior CT. No solid mass identified. Aorta: Not visualized. Urinary Bladder: Normal distention. US/US renal BI* [id number] IMPRESSION: 1. Normal size kidneys with no renal obstruction. 2. Reidentified are multiple bilateral renal cysts. The cysts identified did n ot enhance on a prior CT from 07/01/2024. No solid mass identified.
== END 2025-05-11 07:29 | disposition home or self-care (01) ==
PROVIDERS: PCP Internal Medicine; Visit Provider Urology
DX: N28.1 Cyst of kidney, acquired (principal)
CPT/HCPCS: 76770